=== PATIENT | female | born 1990 | race African-American/Black ===

== ENCOUNTER 2025-08-06 18:00 | Inpatient (IN) | payer OTHER ==
[2025-08-06] MEDS ORDERED: Tranexamic Acid 1,000 MG/10 ML VIAL IVP PRN (21:16)
[2025-08-06] MEDS ORDERED: hydrALAZINE 20 MG/ML VIAL SLOW IVP PRN (21:16)
[2025-08-06] MEDS ORDERED: Carboprost 250 MCG/ML AMP IM PRN (21:16)
[2025-08-06] MEDS ORDERED: Acetaminophen 500 MG TAB PO PRN (21:16)
[2025-08-06] MEDS ORDERED: Lidocaine 1% (PF) 30 ML VIAL SC PRN (21:16)
[2025-08-06] MEDS ORDERED: HYDROcodone/Acetaminophen 5/325 mg Tablet PO PRN (21:16)
[2025-08-06] MEDS ORDERED: Diphenoxylate HCl/Atropine Tablet PO PRN (21:16)
[2025-08-06] MEDS ORDERED: Ondansetron PF 4 MG/2 ML Vial IVP PRN (21:16)
[2025-08-06 22:15] LABS: Hep B Surf Ag - L&D Non-Reactive S/CO (NonReactive)
[2025-08-06 22:16] LABS: Hematocrit 33.0 % (34.9-44.5); Hemoglobin 10.3 g/dL (12.0-15.5); Mean Corpuscular Hemoglobin 20.9 pg (27.0-33.0); Mean Corpuscular Volume 67.1 fL (81.6-98.3); Platelet Count 273 10x3/uL (150-450); Red Blood Cell (RBC) Count 4.92 10x6/uL (3.90-5.03); White Blood Cell (WBC) Count 8.39 10x3/uL (3.5-10.5)
[2025-08-06 22:17] LABS: Syphilis Antibody Index 0.06 S/CO (<1.00 Non-Reactive)
[2025-08-06 22:51] VITALS: BMI 42.1
[2025-08-07] MEDS ORDERED: Ondansetron PF 4 MG/2 ML Vial IVP PRN ×2 (09:38→20:11)
[2025-08-07] MEDS ORDERED: Acetaminophen 325 MG TAB PO PRN (09:38)
[2025-08-07] MEDS ORDERED: diphenhydrAMINE 50 MG/ML VIAL IVP PRN (09:38)
[2025-08-07] MEDS ORDERED: Communication Order-Pharmacy FS SCH (09:45)
[2025-08-07] MEDS ORDERED: fentaNYL 2 mcg/Ropivacaine 0.2% Epidural 100 ML CADD EPIDURAL SCH (09:45)
[2025-08-07] MEDS: Oxytocin 30 units/NS 500 ML 500 ML IV SCH ×2 (13:06→17:50)
[2025-08-07] MEDS: Methylergonovine 0.2 MG/ML VIAL IM PRN (17:53)
[2025-08-07] MEDS: Ibuprofen 800 MG TAB PO PRN (19:04)
[2025-08-07] MEDS ORDERED: Lanolin Ointment 7 GM TUBE TOP PRN (20:11)
[2025-08-07] MEDS ORDERED: Milk Of Magnesia 30 ML UDCUP PO PRN (20:11)
[2025-08-07] MEDS ORDERED: Bisacodyl 10 MG SUPP PR PRN (20:11)
[2025-08-07] MEDS ORDERED: Boostrix 0.5 ML (Tdap) VIAL (>/=7 yrs of age) IM ONE (20:11)
[2025-08-07] MEDS ORDERED: Benzocaine-Menthol 82.5 ML CAN TOP PRN (20:11)
[2025-08-07] MEDS ORDERED: hydrALAZINE 20 MG/ML VIAL SLOW IVP PRN (20:11)
[2025-08-07] MEDS ORDERED: diphenhydrAMINE 25 MG CAP PO PRN (20:11)
[2025-08-07] MEDS: fentaNYL/Ropivacaine Epidural 100 ML ONE (20:50)
[2025-08-07] MEDS: Ferrous Sulfate 325 MG TAB PO SCH (20:51)
[2025-08-07] MEDS: HYDROcodone/Acetaminophen 5/325 mg Tablet PO PRN (21:57)
[2025-08-08] MEDS: Ibuprofen 800 MG TAB PO SCH (01:55)
[2025-08-08] MEDS: Ferrous Sulfate 325 MG TAB PO SCH (07:52)
[2025-08-09 16:00] VITALS: BP 122/72; TEMP 98.2
== END 2025-08-09 19:05 | disposition home or self-care (01) | DRG 807 ==
LOC: CSHLD 20:25 → CSHPP 08-07 20:15
PROVIDERS: ADMIT Family Medicine; ATTEND Family Medicine
PROC: 10907ZC Drainage of Amniotic Fluid, Therapeutic from Products of Conception, Via Natural or Artificial Opening (ICD-10-PCS; principal; 2025-08-06)
PROC: 10E0XZZ Delivery of Products of Conception, External Approach (ICD-10-PCS; 2025-08-06)
DX: O69.81X0 Labor and delivery complicated by cord around neck, without compression, not applicable or unspecified (principal); Z37.0 Single live birth; Z3A.39 39 weeks gestation of pregnancy; Z79.899 Other long term (current) drug therapy
CPT/HCPCS: 85027; 86780; 86850; 86900; 86901; 87340; J2210; J2590